=== PATIENT | female | born 1970 | race American Indian/Alaskan Native ===

== ENCOUNTER 2017-01-23 09:06 | Day surgery (SDC) | payer BC ==
--- NOTE | 2017-01-22 22:12 | History and Physical Report ---
History of Present Illness Date of examination: 01/19/17 History of present illness: Patient has been reassessed/reevaluated. H&P has been reviewed. No interval changes. This is a 47 years old female who presents with abdominal pain. The symptoms began 6 weeks ago. Pateint seen at [facility] ER Patient's work up has included CT of abd/pelivs with possible endometrial mass Also seen at [facility] with TVUS "possible endometrial polyp. She complains of nausea, vomiting, diarrhea and constipation, but denies fever, malaise, melena, hematochezia, chest pain, SOB and peripheral edema. In the past the problem has effectively been treated with antacids. Prior to today, the patient has had CT of abdomen. The patient also presents with menstrual disorder. The symptoms began 4-6 months ago. She complains of heavy bleeding, lack of menses, clotting and cramping, but denies irregular menses, mid-cycle spotting, dysmenorrhea, history of ovarian cysts, history of thyroid disease, history of fibroids, history of PCOS, history of bleeding disorder, lightheadedness and fatigue. Interval between menses is 28 days and 30 days. Number of pads used per day is 6-8. Menstrual flow lasts 5 days. Patient's work-up also included a hysterosonogram which reveal intracavity masss. LMP: 01/05/2017 Height: 64 inches (162.56 cm) Weight: 228 pounds (103.64 kg) BMI: 39.13 BSA: 2.07 Menstrual History: LMP (date): 01/05/2017 Past History : 2 Term Births: 2 Premature Births: 0 Living Children: 2 Para: 2 Aborta: 0 Elect. Ab: 0 Spont. Ab: 0 Ectopics: 0 [employer]TING [employer]OM [employer] History Operations: Transhenoidal removal of adenoma Infection History HIV Risk Eval: no TB exposure: no Personal hx. of genital herpes: no Partner hx. of genital herpes: no Rash/viral illness since LMP: no Hx of STD: None Current Allergies (reviewed today): CODEINE (Critical) Past Medical History: Reviewed history from 01/11/2015 and no changes required: Crohn's Disease Pitutary adenoma Neurologic Disorder Migraines Ulcerative Colitis Hypertension Past Surgical History: Reviewed history from 02/03/2013 and no changes required: Transhenoidal removal of adenoma Family History Summary: Reviewed history Last on 02/21/2016 and no changes required:01/22/2017 General Comments - FH: Family History of Diabetes Family History of Lung Cancer Family History Breast Cancer Risk Factors: Smoked Tobacco Use: Never smoker Smokeless Tobacco Use: Never Passive smoke exposure: no Drug use: no HIV high-risk behavior: no Alcohol use: yes Type: occ Exercise: no Seatbelt use: 100 % Review of Systems See HPI General Complains of fatigue. Denies fever, chills, sweats, anorexia, weakness, malaise, weight loss and sleep disorder. Complains of menorrhagia. Denies vaginal discharge, incontinence, dysuria, hematuria, urinary frequency, amenorrhea, abnormal vaginal bleeding, pelvic pain, genital sores, decreased libido, painful periods, painful sex, urinary urgency, hot flashes, vaginal dryness, vaginal itching and vaginal odor. CV Denies chest pains, palpitations, syncope, dyspnea on exertion, orthopnea, PND and peripheral edema. Resp Denies cough, dyspnea at rest, excessive sputum, hemoptysis, wheezing and pleurisy. GI Denies nausea, vomiting, diarrhea, constipation, change in bowel habits, abdominal pain, melena, hematochezia, jaundice, gas/bloating, indigestion/ heartburn, dysphagia and odynophagia. Breast Denies left breast lump, right breast lump, nipple discharge, bloody discharge from nipple, breast pain, abnormal mammogram and breast enlargement. Psych Denies depression, anxiety, irritability and mood swings. Past History Past Medical History: other (See HPI) Past Surgical History: Other (See HPI) Social history: other (See HPI) Family history: other (See HPI) Medications and Allergies Allergies Allergy/AdvReac Type Severity Reaction Status Date / Time codeine Allergy Itching Verified 01/19/17 11:28 lisinopril Allergy migraine Verified 01/20/17 10:12 Home Medications Medication Instructions Recorded Confirmed Last Taken Type Adalimumab [Humira Pen] 40 mg SQ QWEEK 01/20/17 01/20/17 Unknown History Amitriptyline [Elavil] 25 mg PO HS 01/20/17 01/20/17 Unknown History Folic Acid [Folvite] 1 mg PO DAILY 01/20/17 01/20/17 Unknown History Mesalamine [Asacol Hd] 2 tab PO TID 01/20/17 01/20/17 Unknown History Potassium Chloride 40 meq PO DAILY 01/20/17 01/20/17 Unknown History SUMAtriptan SUCCINATE [Imitrex] 100 mg PO PRN PRN 01/20/17 01/20/17 Unknown History Thyroid,Pork [Medical Billing Representative Thyroid] 30 mg PO DAILY 01/20/17 01/20/17 Unknown History amLODIPine [Norvasc] 5 mg PO DAILY 01/20/17 01/20/17 Unknown History Review of Systems Constitutional: other (See HPI) Exam - Physical Exam Narrative exam: HEENT: normocephalic, no lesions or deformities Skin no ulcers, xanthomas Chest: respiratory effort normal, clear to auscultation Breasts: no masses or nipple discharge CV: regular, normal S1-S2, no murmur, no rub, no gallop Abdomen: soft, non-tender, no masses, bowel sounds normal Musculoskeletal: grossly normal ROM in joints, no joint tenderness or muscle weakness Neuro: no gross anomalities Extremities: normal alignment, no joint enlargement, crepitus, masses or tenderness; normal tone and strength [employer] Exams Vulva/Vagina: normal appearance, no discharge, lesions. No evidence of cystocele or rectocele. Cervix: normal appearance, no lesions, no discharge Uterus: normal position, midline, mobile Adnexae: no masses or tenderness Rectovaginal: Rectal exam deferred due to colonoscopy recently performed or is planned Results - Labs CBC & Chem 7: 01/23/17 10:54 01/23/17 10:54 Assessment and Plan - Patient Problems (1) Menorrhagia Current Visit: Yes Status: Acute Qualifiers: Menorrahagia type: with regular cycle Qualified Code(s): N92.0 - Excessive and frequent menstruation with regular cycle Plan to address problem: Patient desires definitive treatment . Discussed risks and benefits of procedure. Informed endometrial ablation does not treat dymenorrhea or myomas. Patient does not desire future fertility Patient desires definitive treatment Patient desire endometrial ablation. She understands that this procedure only treats bleeding and is not a treatment for dysmenorrhea or myomas. (2) Pelvic mass Current Visit: Yes Status: Acute (3) BMI 37.0-37.9, adult Current Visit: Yes Status: Acute
[~2017-01-23 09:06] MED LIST: NACL 0.9% 1000 ML 1,000 ML IV SCH; NACL 0.9% IR ONE
[2017-01-23 10:59] LABS: Basophils % (Auto) 0.3 % (0.0-1.8); Eosinophils % (Auto) 1.6 % (0.0-4.3); Hematocrit 33.4 % (30.3-42.9); Hemoglobin 10.9 gm/dl (10.1-14.3); Mean Corpuscular HGB Conc 33 % (30-34); Mean Corpuscular Hemoglobin 27 pg (28-32); Mean Corpuscular Volume 82 fl (79-97); Platelet Count 371 K/mm3 (140-440); Red Blood Count 4.08 M/mm3 (3.65-5.03); Red Cell Distribution Width 17.6 % (13.2-15.2); White Blood Count 8.6 K/mm3 (4.5-11.0)
[2017-01-23] MEDS ORDERED: PEPCID PO NR (11:00)
[2017-01-23] MEDS ORDERED: VERSED IV NR (11:00)
[2017-01-23 11:23] LABS: Anion Gap 18 mmol/L; BUN/Creatinine Ratio 14; Blood Urea Nitrogen 11 mg/dL (7-17); Calcium 9.5 mg/dL (8.4-10.2); Carbon Dioxide 24 mmol/L (22-30); Chloride 101.7 mmol/L (98-107); Glucose 105 mg/dL (65-100); Potassium 4.2 mmol/L (3.6-5.0); Sodium 139 mmol/L (137-145)
[2017-01-23] MEDS ORDERED: PERCOCET 5/325 PO PRN (11:33)
[2017-01-23] MEDS ORDERED: MORPHINE IV PRN (11:33)
[2017-01-23] MEDS ORDERED: TORADOL IV PRN (11:33)
--- NOTE | 2017-01-23 11:33 | Anesthesia Consultation ---
Anesthesia Consult and Med Hx Date of service: 01/23/17 - Airway Anesthetic Teeth Evaluation: Good ROM Head & Neck: Adequate Mental/Hyoid Distance: Adequate Mallampati Class: Class II Intubation Access Assessment: Probably Good - Pulmonary Exam CTA: Yes - Cardiac Exam Cardiac Exam: RRR - Pre-Operative Health Status ASA Pre-Surgery Classification: ASA2 Proposed Anesthetic Plan: General - Pulmonary Hx Sleep Apnea: Yes - Central Nervous System Hx Psychiatric Problems: No - Endocrine Hx Hypothyroidism: Yes - Hematic Hx Anemia: Yes - Other Systems Hx Cancer: No
--- NOTE | 2017-01-23 11:33 | Anesthesia Day of Surgery ---
Anesthesia Day of Surgery - Day of Surgery Patient Examined: Yes Patient H&P Reviewed: Yes Patient is NPO: Yes
[2017-01-23] MEDS ORDERED: DIPRIVAN 10 MG/ML IV ONE (11:46)
[2017-01-23] MEDS ORDERED: XYLOCAINE MPF 2% ONE (11:46)
[2017-01-23] MEDS ORDERED: DILAUDID ONE (11:47)
[2017-01-23] MEDS ORDERED: ZOFRAN ONE (12:30)
--- NOTE | 2017-01-23 12:52 | Operative Report ---
Operative Report Operative Report: Date of procedure: 01/23/2017 Pre-operative diagnosis: Submucosal myoma with menorrhalgia Post-operative diagnosis: Same Procedure name(s): Operative hysteroscopy with MyoSure and NovaSure endometrial ablation Surgeon: Sudhir Felix MD Pull Up Hand: [] Anesthesia: Gen. EBL: Minimal Complications: None Findings: Submucosal myoma was seen anterior uterine wall measuring approximately 2-1/2 3 cm in diameter bilateral tubal ostia were seen clearly.Patient had thick endometrial lining Specimen(s): Uterine mass Procedure: Patient was brought into the operating room, where general anesthesia was induced without any difficulty. Patient was placed in dorsal lithotomy position. Prep and drape in the usual sterile manner. Timeout procedure was performed. The patient's bladder was emptied with a red rubber catheter. Speculum was placed in the vagina. Tenaculum was placed at 12:00 on the cervix. The cervical os was dilated to a 19 Khmer diameter. The hysteroscope was placed and the findings noted above. The MyoSure device was primed. The device was placed through the cervical os. The mass was then removed using the MyoSure. The mass was completely removed with no evidence of puncture on the uterine wall. All instruments were then removed. The patient was awakened in the operating room and accompanied to recovery room in good condition. The cervical length and uterine cavity was then assessed with a sound. Cervical length was 3.5 cm the total uterine cavity was 9 cm. The hysteroscope was then placed through the cervical os. With the findings as noted above. The NovaSure was then placed through the cervical os the uterine width was then measured at the 4.3 cm. After passing the testing for cavity integrity, and NovaSure ablation was then started. The power setting was at 130 and the procedure lasted 80 seconds. The NovaSure applicator was then removed. There was large amount of tissue on the NovaSure. Post procedure hysteroscopy showed a complete cavity ablation. Our instruments are removed. The patient tolerated the procedure well and was awakened in the operating room. Accompanied to recovery in good condition.
--- NOTE | 2017-01-23 12:55 | Short Stay Summary ---
Short Stay Documentation Date of service: 01/23/17 - History Principal diagnosis: submucosa myoma with menorrhalgia H&P: dictated Past Medical History: other (See HPI) Past Surgical History: Other (See HPI) Social history: other (See HPI) - Allergies and Medications Current Medications: Allergies codeine Allergy (Verified 01/19/17 11:28) Itching lisinopril Allergy (Verified 01/20/17 10:12) migraine Home Medications Medication Instructions Recorded Confirmed Last Taken Type Adalimumab [Humira Pen] 40 mg SQ QWEEK 01/20/17 01/20/17 Unknown History Amitriptyline [Elavil] 25 mg PO HS 01/20/17 01/20/17 Unknown History Folic Acid [Folvite] 1 mg PO DAILY 01/20/17 01/20/17 Unknown History Mesalamine [Asacol Hd] 2 tab PO TID 01/20/17 01/20/17 Unknown History Potassium Chloride 40 meq PO DAILY 01/20/17 01/20/17 Unknown History SUMAtriptan SUCCINATE [Imitrex] 100 mg PO PRN PRN 01/20/17 01/20/17 Unknown History Thyroid,Pork [Manufacturing Specialist Thyroid] 30 mg PO DAILY 01/20/17 01/20/17 Unknown History amLODIPine [Norvasc] 5 mg PO DAILY 01/20/17 01/20/17 Unknown History Doxycycline [Vibramycin CAP] 100 mg PO Q12HR #14 capsule 01/23/17 Unknown Rx Ibuprofen [Motrin] 800 mg PO Q6H PRN #30 tablet 01/23/17 Unknown Rx Active Medications Famotidine (Pepcid) 20 mg PO PREOP NR Stop: 01/23/17 23:59 Last Admin: 01/23/17 11:22 Dose: 20 mg Sodium Chloride (Nacl 0.9% 1000 Ml) 1,000 mls @ 125 mls/hr IV DIRECT AAKASH Last Admin: 01/23/17 11:22 Dose: 125 mls/hr Ketorolac Tromethamine (Toradol) 30 mg IV ONCE PRN PRN Reason: Pain, Moderate (4-6) Stop: 01/23/17 20:00 Midazolam HCl (Versed) 2 mg IV PREOP NR Stop: 01/23/17 23:59 Last Admin: 01/23/17 11:22 Dose: 2 mg Morphine Sulfate (Morphine) 2 mg IV Q10MIN PRN PRN Reason: Pain, Moderate (4-6) Stop: 01/23/17 20:00 Oxycodone/Acetaminophen (Percocet 5/325) 1 tab PO ONCE PRN PRN Reason: Pain, Moderate (4-6) Stop: 01/23/17 20:00 - Brief post op/procedure progress note Date of procedure: 01/23/17 (sesee dictated operative note) - Hospital course Hospital course: Patient was admitted underwent the above him procedure without any complications. Patient will be discharged with follow-up in office in 1-2 weeks for postop check. - Disposition Condition at discharge: Good Disposition: DC-01 TO HOME OR SELFCARE - Discharge Diagnoses (1) Menorrhagia Status: Acute Qualifiers: Menorrahagia type: with regular cycle Qualified Code(s): N92.0 - Excessive and frequent menstruation with regular cycle (2) Pelvic mass Status: Acute (3) BMI 37.0-37.9, adult Status: Acute Short Stay Discharge Plan Activity: advance as tolerated Diet: regular Additional Instructions: Patient office for fever chills nausea vomiting or pain uncontrolled by pain relief. Follow up with: DR EMMA [Other] - 7 Days Prescriptions: Ibuprofen [Motrin] 800 mg PO Q6H PRN #30 tablet PRN Reason: Pain Doxycycline [Vibramycin CAP] 100 mg PO Q12HR #14 capsule
--- NOTE | 2017-01-23 13:14 | Post Anesthesia Evaluation ---
- Post Anesthesia Evaluation Patient Participated: Yes Airway Patent: Yes Stable Respiratory Function: Yes Nausea/Vomiting: No Temp > 96.8F: Yes Pain Manageable: Yes Adequeate Hydration: Yes Anesthesia Complications: No Block Receding Appropriately: Not Applicable Patient on Ventilator: No
[2017-01-23] MEDS ORDERED: DECADRON ONE (14:00)
[2017-01-23] MEDS ORDERED: BENADRYL IV ONE (14:26)
[2017-01-23 15:10] VITALS: BP 122/72
== END 2017-01-23 15:20 | disposition home or self-care (01) ==
LOC: OR 09:06
PROVIDERS: ATTEND Obstetrics & Gynecology
DX: D25.0 Submucous leiomyoma of uterus (principal); N85.8 Other specified noninflammatory disorders of uterus; E03.9 Hypothyroidism, unspecified; G47.33 Obstructive sleep apnea (adult) (pediatric); Z88.5 Allergy status to narcotic agent; Z88.8 Allergy status to other drugs, medicaments and biological substances; Z79.899 Other long term (current) drug therapy
CPT/HCPCS: 36415; 58563; 80048; 81025; 85025; 88305; A4217; C1782; J1100; J1170; J1200; J2250; J2405; J2704; J7030